=== PATIENT | female | born 1985 | race Caucasian/White ===

== ENCOUNTER 2019-05-27 18:00 | Inpatient (IN) | payer BC ==
[2019-05-27] MEDS ORDERED: Lidocaine 1% (PF) 30 ML VIAL SC PRN (18:11)
[2019-05-27] MEDS ORDERED: Misoprostol 200 MCG TAB PR PRN (18:11)
[2019-05-27] MEDS ORDERED: Zolpidem Tartrate 5 MG TAB PO PRN (18:11)
[2019-05-27] MEDS ORDERED: Ondansetron PF 4 MG/2 ML Vial IVP PRN (18:11)
[2019-05-27] MEDS ORDERED: Acetaminophen 500 MG TAB PO PRN (18:11)
[2019-05-27] MEDS ORDERED: Ibuprofen 800 MG TAB PO PRN (18:11)
[2019-05-27] MEDS ORDERED: Diphenoxylate HCl/Atropine Tablet PO PRN ×2 (18:11)
[2019-05-27] MEDS ORDERED: Butorphanol Tartrate 1 MG/ML VIAL SLOW IVP PRN (18:11)
[2019-05-27] MEDS ORDERED: hydrALAZINE 20 MG/ML VIAL SLOW IVP PRN (18:11)
[2019-05-27] MEDS ORDERED: HYDROcodone/Acetaminophen 5/325 mg Tablet PO PRN ×2 (18:11)
[2019-05-27] MEDS ORDERED: Docusate 100 MG CAP PO PRN (18:11)
[2019-05-27] MEDS ORDERED: Promethazine HCl 25 MG/ML VIAL IM PRN (18:11)
[2019-05-27 18:45] VITALS: BMI 34.0
[2019-05-27 18:48] LABS: Hemoglobin 12.8 g/dL (12.0-16.0); Mean Corpuscular Hemoglobin 34.1 pg (27.0-31.0); Mean Corpuscular Volume 97.5 fL (78.0-98.0); Mean Platelet Volume 9.1 fL (7.4-10.4); Platelet Count 167 thou/uL (130-400); RBC Distribution Width 11.1 % (11.5-14.5); Red Blood Cell (RBC) Count 3.74 mill/uL (4.20-5.40); White Blood Cell (WBC) Count 11.3 thou/uL (4.8-10.8)
[2019-05-27] MEDS ORDERED: Misoprostol 100 MCG TAB ONE (19:05)
[2019-05-27] MEDS ORDERED: NS w/ Oxytocin 10 units 500 ML IV SCH (19:30)
[2019-05-27 19:34] LABS: Syphilis Antibody Nonreactive (Nonreactive); Syphilis Antibody Index 0.04 S/CO (<1.00 Non-Reactive)
[2019-05-27] MEDS: Misoprostol 100 MCG TAB VAG SCH (20:00)
[2019-05-27] MEDS: Lactated Ringer's 1,000 ML IV SCH (20:00)
[2019-05-27 22:46] LABS: HBSAg Index 0.24 S/CO (0-0.99); Hep B Surf Ag Non-Reactive S/CO (NonReactive)
[2019-05-28] MEDS: Misoprostol 100 MCG TAB VAG SCH ×6 (00:09→23:24)
[2019-05-28] MEDS: NS w/ Oxytocin 10 units 500 ML IV SCH ×2 (00:09→16:26)
[2019-05-28] MEDS: Lactated Ringer's 1,000 ML IV SCH ×3 (02:23→13:40)
[2019-05-28] MEDS ORDERED: Lactated Ringer's 500 ML IV PRN (03:39)
[2019-05-28] MEDS ORDERED: Fentanyl 4 mcg/Bup 0.1% Cadd 100 ML ONE ×4 (03:39→23:17)
[2019-05-28] MEDS ORDERED: Naloxone HCl 0.4 mg/ml Vial IVP PRN ×2 (03:39)
[2019-05-28] MEDS ORDERED: diphenhydrAMINE 50 MG/ML VIAL IVP PRN (03:39)
[2019-05-28] MEDS ORDERED: Promethazine HCl 25 MG/ML VIAL IM PRN (03:39)
[2019-05-28] MEDS ORDERED: ePHEDrine/0.9% NaCl/PF SYRINGE 50 mg/10 ml SLOW IVP PRN (03:39)
[2019-05-28] MEDS ORDERED: Ondansetron PF 4 MG/2 ML Vial IVP PRN (03:39)
[2019-05-28] MEDS ORDERED: Communication Order-Pharmacy FS SCH (03:45)
[2019-05-28] MEDS: Fentanyl 4 mcg/Bupivacaine 0.1% Cassette 100 ML EPIDURAL SCH ×3 (04:06→23:19)
[2019-05-28] MEDS ORDERED: Calcium Carbonate 500 MG ChewTAB PO PRN (07:13)
[2019-05-28] MEDS: Acetaminophen 325 MG TAB PO PRN ×2 (11:20→19:43)
[2019-05-29] MEDS: Acetaminophen 325 MG TAB PO PRN (01:48)
[2019-05-29] MEDS: Misoprostol 100 MCG TAB VAG SCH ×3 (03:28→14:24)
[2019-05-29] MEDS ORDERED: Fentanyl 4 mcg/Bup 0.1% Cadd 100 ML ONE (05:52)
[2019-05-29] MEDS: Lactated Ringer's 1,000 ML IV SCH ×2 (05:53→14:24)
[2019-05-29] MEDS: Fentanyl 4 mcg/Bupivacaine 0.1% Cassette 100 ML EPIDURAL SCH (05:53)
[2019-05-29] MEDS ORDERED: Bicitra 30 ML UDCUP ONE (08:36)
[2019-05-29] MEDS ORDERED: Methylergonovine 0.2 MG/ML VIAL ONE (09:16)
[2019-05-29] MEDS ORDERED: Carboprost 250 MCG/ML AMP ONE (09:16)
[2019-05-29] MEDS ORDERED: Lidocaine 1% (PF) 30 ML VIAL ONE (09:26)
[2019-05-29] MEDS ORDERED: Bupivacaine/Epinephrine 0.25% 30 ML VIAL ONE (11:11)
[2019-05-29] MEDS: NS / Oxytocin 40 units/1000ml 1,000 ML IV PRN ×2 (11:27→13:52)
[2019-05-29] MEDS ORDERED: diphenhydrAMINE 25 MG CAP PO PRN (11:30)
[2019-05-29] MEDS ORDERED: Lanolin Ointment 7 GM TUBE TOP PRN (11:30)
[2019-05-29] MEDS ORDERED: Ondansetron PF 4 MG/2 ML Vial IVP PRN (11:30)
[2019-05-29] MEDS ORDERED: Zolpidem Tartrate 5 MG TAB PO PRN (11:30)
[2019-05-29] MEDS ORDERED: hydrALAZINE 20 MG/ML VIAL SLOW IVP PRN (11:30)
[2019-05-29] MEDS ORDERED: Milk Of Magnesia 30 ML UDCUP PO PRN (11:30)
[2019-05-29] MEDS ORDERED: Benzocaine-Menthol 82.5 ML CAN TOP PRN (11:30)
[2019-05-29] MEDS ORDERED: NS / Oxytocin 40 units/1000ml 1,000 ML IV SCH (11:30)
[2019-05-29] MEDS ORDERED: Misoprostol 200 MCG TAB VAG PRN (11:30)
[2019-05-29] MEDS ORDERED: Preparation H Ointment 28 GM TUBE PR PRN (11:30)
[2019-05-29] MEDS ORDERED: Adacel (T-DAP) 0.5 ML SYRINGE IM ONE (11:30)
[2019-05-29] MEDS ORDERED: Bisacodyl 10 MG SUPP PR PRN (11:30)
[2019-05-29] MEDS ORDERED: Ampicillin 2 GM in Sodium Chloride 0.9% 100 ML IVPB SCH (12:00)
[2019-05-29] MEDS: Ibuprofen 800 MG TAB PO SCH ×2 (14:23→20:52)
[2019-05-29] MEDS: Ferrous Sulfate 325 MG TAB PO SCH (15:52)
[2019-05-29] MEDS: Docusate Calcium (SURFAK) 240 MG CAP PO SCH (20:52)
[2019-05-29] MEDS: Acetaminophen/Codeine 30-300mg Tablet PO PRN (21:01)
[2019-05-30] MEDS: Acetaminophen/Codeine 30-300mg Tablet PO PRN ×3 (01:39→09:54)
[2019-05-30] MEDS: Ibuprofen 800 MG TAB PO SCH ×3 (05:04→21:27)
[2019-05-30 05:46] LABS: Hemoglobin 9.8 g/dL (12.0-16.0); Mean Corpuscular Hemoglobin 33.2 pg (27.0-31.0); Mean Platelet Volume 8.6 fL (7.4-10.4); Platelet Count 132 thou/uL (130-400); RBC Distribution Width 11.4 % (11.5-14.5); Red Blood Cell (RBC) Count 2.94 mill/uL (4.20-5.40); White Blood Cell (WBC) Count 14.4 thou/uL (4.8-10.8)
[2019-05-30] MEDS: Ferrous Sulfate 325 MG TAB PO SCH ×2 (09:53→18:18)
[2019-05-30] MEDS: Docusate Calcium (SURFAK) 240 MG CAP PO SCH ×2 (09:53→21:27)
[2019-05-30] MEDS: Prenatal Vitamin 1 TAB PO SCH (09:53)
[2019-05-31] MEDS: Ibuprofen 800 MG TAB PO SCH ×2 (05:33→13:56)
[2019-05-31] MEDS: Ferrous Sulfate 325 MG TAB PO SCH (09:30)
[2019-05-31] MEDS: Docusate Calcium (SURFAK) 240 MG CAP PO SCH (09:30)
[2019-05-31] MEDS: Prenatal Vitamin 1 TAB PO SCH (09:46)
[2019-05-31 14:17] VITALS: BP 106/69; TEMP 98.3
== END 2019-05-31 15:25 | disposition home or self-care (01) | DRG 807 ==
LOC: L&D 18:06 → 3SW 05-29 13:29
PROVIDERS: ADMIT Obstetrics & Gynecology; ATTEND Obstetrics & Gynecology
PROC: 10E0XZZ Delivery of Products of Conception, External Approach (ICD-10-PCS; principal; 2019-05-29)
PROC: 0KQM0ZZ Repair Perineum Muscle, Open Approach (ICD-10-PCS; 2019-05-29)
PROC: 3E033VJ Introduction of Other Hormone into Peripheral Vein, Percutaneous Approach (ICD-10-PCS; 2019-05-29)
DX: O70.1 Second degree perineal laceration during delivery (principal); Z37.0 Single live birth; Z3A.39 39 weeks gestation of pregnancy
CPT/HCPCS: 36415; 51702; 85027; 86780; 86850; 86900; 86901; 87340; J0290; J0595; J0690; J2001; J2210; J2405; J2550; J2590; J3490